=== PATIENT | female | born 1985 ===

== ENCOUNTER 2016-08-31 15:48 | Emergency (ER) | payer MEDICAID ==
[2016-08-31 15:49] VITALS: BMI 30.5
[2016-08-31 17:21] VITALS: BP 137/89; PULSE 63; RESP 16; TEMP 98.1; O2SAT 100
--- NOTE | 2016-08-31 18:09 | ED PDOC ---
HPI: General Adult Time Seen by Provider: 08/31/16 17:51 Chief Complaint (Nursing): ENT Problem Chief Complaint (Provider): sore throat History Per: Patient (31 y/o female here for sore throat. Patient has had ongoing pain and swelling noted in throat/neck for which she has had thyroid ultrasound/ENT evaluation. Was seen in ED with positive strep test and prescribed antibiotics. Seen by ENT subsequently with augmentin rx and now recently prescribed levaquin. Patient was advised by ENT to have CT of neck for evaluation of symptoms. ) Past Medical History Reviewed: Historical Data, Nursing Documentation, Vital Signs Vital Signs: Last Vital Signs Temp 98.1 F 08/31/16 17:15 Pulse 63 08/31/16 17:15 Resp 16 08/31/16 17:15 BP 137/89 08/31/16 17:15 Pulse Ox 100 08/31/16 18:09 - Medical History PMH: Asthma - Surgical History Surgical History: Cholecystectomy - Family History Family History: States: Unknown Family Hx - Immunization History Hx Tetanus Toxoid Vaccination: No Hx Influenza Vaccination: No Hx Pneumococcal Vaccination: No - Home Medications Home Medications: Ambulatory Orders Medication Instructions Recorded Ibuprofen [Motrin Tab] 2 tab PO PRN PRN 07/26/16 Ibuprofen [Motrin] 600 mg PO Q8 PRN #21 tab 07/26/16 Penicillin VK [Pen-Vee K] 1 tab PO QID #40 tab 07/26/16 - Allergies Allergies/Adverse Reactions: Allergies Allergy/AdvReac Type Severity Reaction Status Date / Time hydrocortisone AdvReac ANAPHYLAXIS Verified 08/31/16 17:15 EGGPLANT Allergy Severe ANAPHYLAXIS Uncoded 08/31/16 17:15 Review of Systems ROS Statement: Except As Marked, All Systems Reviewed And Found Negative Musculoskeletal: Positive for: Neck Pain Physical Exam - Reviewed Nursing Documentation Reviewed: Yes Vital Signs Reviewed: Yes - Physical Exam Appears: Positive for: Well, Non-toxic, No Acute Distress Head Exam: Positive for: ATRAUMATIC, NORMAL INSPECTION, NORMOCEPHALIC Skin: Positive for: Normal Color, Warm, DRY Eye Exam: Positive for: EOMI, Normal appearance, PERRL ENT: Positive for: Normal ENT Inspection Neck: Positive for: Normal, Painless ROM Cardiovascular/Chest: Positive for: Regular Rate, Rhythm Respiratory: Positive for: CNT, Normal Breath Sounds Gastrointestinal/Abdominal: Positive for: Normal Exam, Bowel Sounds, Soft Back: Positive for: Normal Inspection Extremity: Positive for: Normal ROM Neurologic/Psych: Positive for: Alert, Oriented - Laboratory Results Result Diagrams: 08/31/16 17:50 08/31/16 17:50 Urine POC: Negative - ECG O2 Sat by Pulse Oximetry: 100 - Progress ED Course And Treament: TORADOL 15MG IV X [address] SOFT TISSUE PENDING Disposition - Clinical Impression Clinical Impression: Throat pain - Patient ED Disposition Is Patient to be Admitted: Transfer of Care - Disposition Disposition: Transfer of Care Disposition Time: 20:29 Condition: FAIR Patient Signed Over To: Lay Riojas Handoff Comments: CT NECK
[2016-08-31 18:32] LABS: BASO % 0.5 % (0.0-2.0); EOS # 0.1 K/uL (0.0-0.7); EOS % 1.1 % (0.0-4.0); HEMATOCRIT 37.2 % (34.0-47.0); LYMPH # 2.9 K/uL (1.0-4.3); LYMPH % 41.7 % (20.0-40.0); MEAN CELL VOLUME 87.1 fl (81.0-99.0); MEAN CORPUSCULAR HEMOGLOBIN 28.6 pg (27.0-31.0); MEAN CORPUSCULAR HGB CONC 32.8 g/dL (33.0-37.0); MEAN PLATELET VOLUME 7.7 fl (7.2-11.7); MONO # 0.5 K/uL (0.0-0.8); MONO % 7.2 % (0.0-10.0); NEUT # 3.4 K/uL (1.8-7.0); NEUT % 49.5 % (50.0-75.0); NRBC % 0.1 % (0.0-0.0); RED CELL DISTRIBUTION WIDTH 15.3 % (11.5-14.5); WHITE BLOOD COUNT 6.8 K/uL (4.8-10.8)
[2016-08-31 18:41] LABS: ALB/GLOB RATIO 1.1 (1.0-2.1); ALKALINE PHOSPHATASE 73 U/L (38-126); ALT/SGPT 21 U/L (9-52); AST/SGOT 32 U/L (14-36); BILIRUBIN,TOTAL 0.7 mg/dl (0.2-1.3); BLOOD UREA NITROGEN 13 mg/dl (7-17); CALCIUM 9.1 mg/dL (8.4-10.2); CARBON DIOXIDE 27 mmol/L (22-30); CHLORIDE 102 mmol/L (98-107); GFR AFRICAN-AMERICAN > 60; GLUCOSE,RANDOM 89 mg/dL (65-105); POTASSIUM 3.3 MMOL/L (3.6-5.0); SODIUM 141 mmol/l (132-148); TOTAL PROTEIN 7.5 G/DL (6.3-8.2)
[2016-08-31] MEDS ORDERED: Iohexol 300 100 ML IJ ONE (19:08)
[2016-08-31] MEDS ORDERED: Sodium Chloride 0.9% 50 ML IV ONE (19:08)
--- NOTE | 2016-08-31 21:05 | CT ---
EXAM: CT Neck With Intravenous Contrast. CLINICAL HISTORY: 31 years old, female; Pain; Throat pain; Additional info: Sore throat TECHNIQUE: Axial computed tomography images of the neck with intravenous contrast. This CT exam was performed using one or more of the following dose reduction techniques: automated exposure control, adjustment of the mA and/or kV according to patient size, and/or use of iterative reconstruction technique. Coronal and sagittal reformatted images were created and reviewed. CONTRAST: 95 mL of OMNIPAQUE 300/95 CC administered intravenously. COMPARISON: No relevant prior studies available. FINDINGS: Nasopharynx: Unremarkable. Oropharynx: No significant tonsillar enlargement. No peritonsillar abscess. Hypopharynx: Unremarkable. Larynx: Unremarkable. Normal epiglottis. Trachea: Unremarkable. Retropharyngeal space: Unremarkable. Submandibular/parotid glands: Unremarkable. Glands are normal in size. Thyroid: Unremarkable. No enlarged or calcified nodules. Bones/joints: No acute fracture. Soft tissues: Unremarkable. Vasculature: No acute findings. Bovine arch. Lymph nodes: Shotty lymph nodes within cervical region. Sinuses: LEFT maxillary retention cyst. Lung apices: Unremarkable as visualized. IMPRESSION: 1.No acute findings. 2.Non-acute findings are described above.
--- NOTE | 2016-08-31 21:12 | ED PDOC ---
- Laboratory Results Result Diagrams: 08/31/16 17:50 08/31/16 17:50 Urine POC: Negative - ECG O2 Sat by Pulse Oximetry: 100 - Progress ED Course And Treament: EXAM: CT Neck With Intravenous Contrast. CLINICAL HISTORY: 31 years old, female; Pain; Throat pain; Additional info: Sore throat TECHNIQUE: Axial computed tomography images of the neck with intravenous contrast. This CT exam was performed using one or more of the following dose reduction techniques: automated exposure control, adjustment of the mA and/or kV according to patient size, and/or use of iterative reconstruction technique. Coronal and sagittal reformatted images were created and reviewed. CONTRAST: 95 mL of OMNIPAQUE 300/95 CC administered intravenously. COMPARISON: No relevant prior studies available. FINDINGS: Nasopharynx: Unremarkable. Oropharynx: No significant tonsillar enlargement. No peritonsillar abscess. Hypopharynx: Unremarkable. Larynx: Unremarkable. Normal epiglottis. Trachea: Unremarkable. Retropharyngeal space: Unremarkable. Submandibular/parotid glands: Unremarkable. Glands are normal in size. Thyroid: Unremarkable. No enlarged or calcified nodules. Bones/joints: No acute fracture. Soft tissues: Unremarkable. Vasculature: No acute findings. Bovine arch. Lymph nodes: Shotty lymph nodes within cervical region. Sinuses: LEFT maxillary retention cyst. Lung apices: Unremarkable as visualized. IMPRESSION: 1. No acute findings. 2. Non-acute findings are described above. Patient educated on findings, copy of CT given to patient to take to her ENT. Rx Naproxen provided. Advised to continue Levaquin and Prednisone as previously instructed. Throat culture obtained. Return to ED for worsening/concerning symptoms. Disposition - Clinical Impression Clinical Impression: Throat pain - POA Present On Arrival: None - Disposition Disposition: Routine/Home Disposition Time: 21:37 Condition: STABLE Prescriptions: Naproxen [Naprosyn Tab] 375 mg PO Q12 PRN #30 tab PRN Reason: Pain, Moderate (4-7) Instructions: Pharyngitis (ED)
== END 2016-08-31 22:06 | disposition home or self-care (01) ==
LOC: H.ER 15:48
DX: R07.0 Pain in throat (principal); J45.909 Unspecified asthma, uncomplicated